=== PATIENT | male | born 1970 | race Two or more races ===

== ENCOUNTER 2025-02-08 12:49 | Inpatient (IN) | payer OTHER ==
[~2025-02-08] VITALS: Ht 170.2 cm; Wt 76.0 kg
[2025-02-08] MEDS: FUROSEMIDE 20 MG/2 ML VIAL IVP ONE (13:22)
[2025-02-08 13:31] LABS: RED BLOOD CELL COUNT(AUTO) 4.94 MIL/uL (4.50-5.90); RED CELL DISTRIBUTION WIDTH 16.1 % (11.5-14.5); WHITE BLOOD COUNT (AUTO) 4.2 K/uL (4.5-11.0)
[2025-02-08 13:32] LABS: CALCIUM, TOTAL 8.4 mg/dL (8.8-10.5); CREATININE 0.79 mg/dL (0.60-1.30); GLOMERULAR FILTR. RATE CALC > 60 mL/min (>60); GLUCOSE,RANDOM 221 mg/dL (70-110); SODIUM SERUM 132 mmol/L (136-145); UREA NITROGEN, BLOOD 25 mg/dL (7-18)
[2025-02-08 13:38] LABS: ASPARTATE AMINOTRANSFERASE 28.0 U/L (15-37); TOTAL PROTEIN, SERUM 5.9 g/dL (6.4-8.2)
[2025-02-08 13:40] LABS: TROPONIN I-HIGH SENSITIVITY 22 ng/L (<76)
[2025-02-08 13:51] LABS: PLATELET COUNT (AUTO) 92 K/uL (150-450)
[2025-02-08 14:40] LABS: COVID AG,FIA SOURCE NASAL SWAB
[2025-02-08 14:45] LABS: APPEARANCE,URINE CLEAR (CLEAR); GLUCOSE, URINE (UA) 300-500 mg/dL (NEGATIVE); LEUKOCYTE ESTERASE ,URINE NEGATIVE (NEGATIVE); NITRATE,URINE NEGATIVE (NEGATIVE); OCCULT BLOOD,URINE SMALL (NEGATIVE); PH,URINE DRUG SCREEN 6.0 (5.0-8.0); SPECIFIC GRAVITIY, URINE 1.011 (1.003-1.030)
[2025-02-08 14:52] LABS: ALCOHOL, URINE DRUG SCREEN NEGATIVE (NEGATIVE); AMPHET/METH SCREEN,URINE NEGATIVE (NEGATIVE); BARBITURATE SCREEN, URINE NEGATIVE (NEGATIVE); CANNABINOID SCREEN,URINE NEGATIVE (NEGATIVE); COCAINE SCREEN,URINE NEGATIVE (NEGATIVE); METHADONE SCREEN, URINE NEGATIVE (NEGATIVE)
[2025-02-08 15:05] LABS: SARS-COV2 (COVID) ANTIGEN,FIA Negative (Negative)
[2025-02-08 15:19] LABS: INFLUENZA TYPE A NEGATIVE FOR TYPE A (NEGATIVE); INFLUENZA TYPE B NEGATIVE FOR TYPE B (NEGATIVE)
[2025-02-08] MEDS ORDERED: FURO20TA5 PO (16:54)
[2025-02-08] MEDS ORDERED: ASPI81TA87 PO (16:54)
[2025-02-08] MEDS ORDERED: CLOP75TA83 PO (16:54)
[2025-02-08] MEDS ORDERED: CARV3 PO (16:54)
[2025-02-08] MEDS ORDERED: SPIR-37 PO (16:54)
[2025-02-08] MEDS ORDERED: RANO500T27 PO (16:54)
[2025-02-08] MEDS ORDERED: SEMA2PEN SQ (16:54)
[2025-02-08] MEDS ORDERED: LOSA-381 PO (16:54)
[2025-02-08] MEDS ORDERED: EMPA25TA3 PO (16:54)
[2025-02-08] MEDS ORDERED: LEVA15HF3 IH (16:54)
[2025-02-08] MEDS ORDERED: INSREG SQ (16:54)
[2025-02-08] MEDS ORDERED: INSLAN SQ (16:54)
[2025-02-08] MEDS ORDERED: OMEP-148 PO (16:54)
[2025-02-08] MEDS ORDERED: MOME13HF11 IH (16:54)
[2025-02-08] MEDS ORDERED: IPRATROPIUM BROMIDE 0.5 MG/2.5 ML NEB SOLUTION NEB PRN (17:15)
[2025-02-08] MEDS ORDERED: ONDANSETRON HCL 4 MG/2 ML VIAL IVP PRN (17:15)
[2025-02-08] MEDS ORDERED: MAGNESIUM HYDROXIDE SUSPENSION 30 ML UDCUP PO PRN (17:15)
[2025-02-08] MEDS ORDERED: ALBUTEROL SULFATE 2.5 MG/0.5 ML NEB SOLUTION NEB PRN (17:15)
[2025-02-08] MEDS ORDERED: BISACODYL 10 MG RECTAL RECTAL SUPPOSITORY PR PRN (17:15)
[2025-02-08] MEDS ORDERED: ZOLPIDEM TARTRATE 5 MG TABLET PO PRN (17:15)
[2025-02-08] MEDS ORDERED: DEXTROSE 50%-WATER 25 GM/50 ML SYRINGE IVP PRN (17:45)
[2025-02-08 18:31] VITALS: BP 112/82; PULSE 96; RESP 16; TEMP 98.1; O2SAT 97
[2025-02-08 19:36] VITALS: BP 136/86; PULSE 95; RESP 19; TEMP 97.5; O2SAT 100
[2025-02-08] MEDS: ACETAMINOPHEN 325 MG TABLET PO PRN (20:52)
[2025-02-08] MEDS: RANOLAZINE 500 MG ER TABLET PO SCH (20:52)
[2025-02-08] MEDS: INSULIN LISPRO 100 UNITS/ML SQ PRN (20:55)
[2025-02-08] MEDS ORDERED: MISC MED-CONVERTED FROM AMBULATORY (Mometasone/Formoterol (Dulera 200 Mcg-5 Mcg Inhaler) 2 IH SCH (21:00)
[2025-02-08] MEDS: HEPARIN SODIUM,PORCINE 5,000 UNITS/ML VIAL SQ SCH (23:37)
[2025-02-09] VITALS (7 sets, daily range): BP systolic 100–123; BP diastolic 63–89; PULSE 87–99; RESP 17–19; TEMP 97.9–98.4; O2SAT 95–99
[2025-02-09 01:21] LABS: GLUCOMETER DEV NAME(LOC) 5S.1D; GLUCOSE,POINT OF CARE 300 MG/DL (70-110)
[2025-02-09 06:18] LABS: PLATELET COUNT (AUTO) 98 K/uL (150-450); RED BLOOD CELL COUNT(AUTO) 4.90 MIL/uL (4.50-5.90); RED CELL DISTRIBUTION WIDTH 15.3 % (11.5-14.5); WHITE BLOOD COUNT (AUTO) 4.9 K/uL (4.5-11.0)
[2025-02-09 06:31] LABS: CALCIUM, TOTAL 8.2 mg/dL (8.8-10.5); CREATININE 0.90 mg/dL (0.60-1.30); GLOMERULAR FILTR. RATE CALC > 60 mL/min (>60); GLUCOSE,RANDOM 132 mg/dL (70-110); SODIUM SERUM 135 mmol/L (136-145); UREA NITROGEN, BLOOD 27 mg/dL (7-18)
[2025-02-09] MEDS: CLOPIDOGREL BISULFATE 75 MG TABLET PO SCH (08:59)
[2025-02-09] MEDS: ASPIRIN 81 MG DR TABLET PO SCH (08:59)
[2025-02-09] MEDS: EMPAGLIFLOZIN 25 MG TABLET PO SCH (08:59)
[2025-02-09] MEDS: SPIRONOLACTONE 25 MG TABLET PO SCH (09:00)
[2025-02-09] MEDS: FUROSEMIDE 40 MG/4 ML VIAL IVP SCH ×2 (09:00→20:29)
[2025-02-09] MEDS: PANTOPRAZOLE SODIUM 40 MG DR TABLET PO SCH (09:00)
[2025-02-09] MEDS: LOSARTAN POTASSIUM 25 MG TABLET PO SCH (09:00)
[2025-02-09] MEDS: INSULIN GLARGINE,HUM.REC.ANLOG 100 UNITS/ML SQ SCH (09:03)
[2025-02-09 11:31] LABS: GLUCOMETER DEV NAME(LOC) 5S.1D; GLUCOSE,POINT OF CARE 120 MG/DL (70-110)
[2025-02-09] MEDS ORDERED: SODIUM CHLORIDE 0.9% 1,000 ML ONE (12:08)
[2025-02-09 16:36] LABS: GLUCOMETER DEV NAME(LOC) 5S.1D; GLUCOSE,POINT OF CARE 217 MG/DL (70-110)
[2025-02-09 17:55] LABS: GLUCOMETER DEV NAME(LOC) 5N.2C; GLUCOSE,POINT OF CARE 170 MG/DL (70-110)
[2025-02-09 23:21] LABS: GLUCOMETER DEV NAME(LOC) 5N.2C; GLUCOSE,POINT OF CARE 90 MG/DL (70-110)
[2025-02-10 03:53] VITALS: BP 117/80; PULSE 81; RESP 18; TEMP 97.5; O2SAT 95
[2025-02-10 05:21] LABS: GLUCOMETER DEV NAME(LOC) 5N.2C; GLUCOSE,POINT OF CARE 64 MG/DL (70-110)
[2025-02-10 06:15] LABS: CALCIUM, TOTAL 7.8 mg/dL (8.8-10.5); CREATININE 0.99 mg/dL (0.60-1.30); GLOMERULAR FILTR. RATE CALC > 60 mL/min (>60); GLUCOSE,RANDOM 123 mg/dL (70-110); SODIUM SERUM 136 mmol/L (136-145); UREA NITROGEN, BLOOD 24 mg/dL (7-18)
[2025-02-10 06:18] LABS: PLATELET COUNT (AUTO) 96 K/uL (150-450); RED BLOOD CELL COUNT(AUTO) 4.66 MIL/uL (4.50-5.90); RED CELL DISTRIBUTION WIDTH 16.0 % (11.5-14.5); WHITE BLOOD COUNT (AUTO) 3.0 K/uL (4.5-11.0)
[2025-02-10 08:00] VITALS: BP 115/80; PULSE 87; RESP 18; TEMP 98; O2SAT 95
[2025-02-10 09:16] LABS: GLUCOMETER DEV NAME(LOC) 5N.2C; GLUCOSE,POINT OF CARE 131 MG/DL (70-110)
[2025-02-10] MEDS ORDERED: POTASSIUM CHL 10 MEQ/WATER 50 ML IV PRN (10:45)
[2025-02-10 11:27] VITALS: BP 117/83; PULSE 92; RESP 18; TEMP 98; O2SAT 96
[2025-02-10] MEDS: POTASSIUM CHLORIDE 20 MEQ ER TABLET PO PRN (12:17)
[2025-02-10 14:46] LABS: GLUCOMETER DEV NAME(LOC) 5S.1D; GLUCOSE,POINT OF CARE 184 MG/DL (70-110)
[2025-02-10 15:33] VITALS: BP 106/80; PULSE 92; RESP 18; TEMP 98.2
[2025-02-10 17:50] LABS: GLUCOMETER DEV NAME(LOC) 5S.1D; GLUCOSE,POINT OF CARE 177 MG/DL (70-110)
[2025-02-10 20:04] VITALS: BP 103/68; PULSE 89; RESP 17; TEMP 98.2; O2SAT 94
[2025-02-10 21:31] LABS: GLUCOMETER DEV NAME(LOC) 5S.1D; GLUCOSE,POINT OF CARE 110 MG/DL (70-110)
[2025-02-10] MEDS: BENZONATATE 100 MG CAPSULE PO PRN (22:45)
[2025-02-11 00:12] VITALS: BP 94/67; PULSE 89; RESP 17; TEMP 97.7; O2SAT 94
[2025-02-11 05:17] VITALS: BP 101/71; PULSE 86; RESP 16; TEMP 98.2; O2SAT 94
[2025-02-11 06:38] LABS: CALCIUM, TOTAL 8.1 mg/dL (8.8-10.5); CREATININE 1.01 mg/dL (0.60-1.30); GLOMERULAR FILTR. RATE CALC > 60 mL/min (>60); GLUCOSE,RANDOM 93 mg/dL (70-110); PLATELET COUNT (AUTO) 101 K/uL (150-450); RED BLOOD CELL COUNT(AUTO) 4.86 MIL/uL (4.50-5.90); RED CELL DISTRIBUTION WIDTH 15.7 % (11.5-14.5); SODIUM SERUM 132 mmol/L (136-145); UREA NITROGEN, BLOOD 27 mg/dL (7-18); WHITE BLOOD COUNT (AUTO) 3.5 K/uL (4.5-11.0)
[2025-02-11 08:32] VITALS: BP 109/72; PULSE 88; RESP 18; TEMP 97.9; O2SAT 100
[2025-02-11 11:51] LABS: GLUCOMETER DEV NAME(LOC) 5N.2C; GLUCOSE,POINT OF CARE 99 MG/DL (70-110)
[2025-02-11 12:06] VITALS: BP 100/70; PULSE 69; RESP 18; TEMP 97.9; O2SAT 99
[2025-02-11 16:09] VITALS: BP 107/75; PULSE 70; RESP 18; TEMP 97.9; O2SAT 96
[2025-02-11 19:53] VITALS: BP 110/70; PULSE 87; RESP 18; TEMP 98.1; O2SAT 99
[2025-02-11 20:55] LABS: GLUCOMETER DEV NAME(LOC) 5S.1D; GLUCOSE,POINT OF CARE 154 MG/DL (70-110)
[2025-02-11 21:46] LABS: GLUCOMETER DEV NAME(LOC) 5N.2C; GLUCOSE,POINT OF CARE 152 MG/DL (70-110)
[2025-02-12 01:09] VITALS: BP 117/75; PULSE 85; RESP 18; TEMP 98.6; O2SAT 98
[2025-02-12 05:31] VITALS: BP 94/66; PULSE 81; RESP 18; TEMP 98.2; O2SAT 95
[2025-02-12 06:01] LABS: GLUCOMETER DEV NAME(LOC) 5N.2C; GLUCOSE,POINT OF CARE 145 MG/DL (70-110)
[2025-02-12 06:11] LABS: GLUCOMETER DEV NAME(LOC) 5S.1D; GLUCOSE,POINT OF CARE 90 MG/DL (70-110)
[2025-02-12 08:25] VITALS: BP 98/68; PULSE 84; RESP 18; TEMP 98.1; O2SAT 96
[2025-02-12 11:46] VITALS: BP 107/73; PULSE 83; RESP 18; TEMP 98.2; O2SAT 95
[2025-02-12 11:50] LABS: GLUCOMETER DEV NAME(LOC) 5N.2C; GLUCOSE,POINT OF CARE 159 MG/DL (70-110)
[2025-02-12 15:29] VITALS: BP 103/68; PULSE 73; RESP 18; TEMP 98.8; O2SAT 96
[2025-02-12 17:41] LABS: GLUCOMETER DEV NAME(LOC) 5N.2C; GLUCOSE,POINT OF CARE 149 MG/DL (70-110)
[2025-02-12 20:00] VITALS: BP 124/82; PULSE 67; RESP 17; TEMP 97.3; O2SAT 99
[2025-02-13 00:46] VITALS: BP 113/72; PULSE 87; RESP 18; TEMP 98.4; O2SAT 95
[2025-02-13 04:00] VITALS: BP 122/71; PULSE 84; RESP 18; TEMP 98.1; O2SAT 97
[2025-02-13 05:35] LABS: GLUCOMETER DEV NAME(LOC) 5N.2C; GLUCOSE,POINT OF CARE 178 MG/DL (70-110)
[2025-02-13 06:31] LABS: RED BLOOD CELL COUNT(AUTO) 4.80 MIL/uL (4.50-5.90); RED CELL DISTRIBUTION WIDTH 15.6 % (11.5-14.5); WHITE BLOOD COUNT (AUTO) 3.6 K/uL (4.5-11.0)
[2025-02-13 06:54] LABS: CALCIUM, TOTAL 8.1 mg/dL (8.8-10.5); CREATININE 1.19 mg/dL (0.60-1.30); GLOMERULAR FILTR. RATE CALC > 60 mL/min (>60); GLUCOSE,RANDOM 119 mg/dL (70-110); SODIUM SERUM 134 mmol/L (136-145); UREA NITROGEN, BLOOD 37 mg/dL (7-18)
[2025-02-13 07:01] LABS: PLATELET COUNT (AUTO) 96 K/uL (150-450)
[2025-02-13 07:47] VITALS: BP 113/68; PULSE 79; RESP 18; TEMP 98.1; O2SAT 99
[2025-02-13] MEDS ORDERED: FURO-151 PO (12:38)
[2025-02-13 20:05] LABS: GLUCOMETER DEV NAME(LOC) 5S.1D; GLUCOSE,POINT OF CARE 116 MG/DL (70-110)
[2025-02-14] MEDS ORDERED: LOSARTAN POTASSIUM 25 MG TABLET PO SCH (09:00)
== END 2025-02-13 14:00 | DRG 291 ==
LOC: EMS 14:45 → EDH 16:52 → 5S 18:17
PROVIDERS: ADMIT Hospitalist; ATTEND Hospitalist
DX: I11.0 Hypertensive heart disease with heart failure (principal); I50.23 Acute on chronic systolic (congestive) heart failure; J96.00 Acute respiratory failure, unspecified whether with hypoxia or hypercapnia; I42.0 Dilated cardiomyopathy; E78.00 Pure hypercholesterolemia, unspecified; E87.6 Hypokalemia; I25.10 Atherosclerotic heart disease of native coronary artery without angina pectoris; K21.9 Gastro-esophageal reflux disease without esophagitis; J44.89 Other specified chronic obstructive pulmonary disease; E11.40 Type 2 diabetes mellitus with diabetic neuropathy, unspecified; E11.51 Type 2 diabetes mellitus with diabetic peripheral angiopathy without gangrene; E11.65 Type 2 diabetes mellitus with hyperglycemia; R53.81 Other malaise; K74.60 Unspecified cirrhosis of liver; Z20.822 Contact with and (suspected) exposure to COVID-19; Z82.49 Family history of ischemic heart disease and other diseases of the circulatory system; Z88.5 Allergy status to narcotic agent; Z95.810 Presence of automatic (implantable) cardiac defibrillator
CPT/HCPCS: 71045; 80048; 80076; 80307; 81001; 82962; 83880; 84132; 84484; 85025; 87804; 93005; 93306; 96374; 97116; 97162; 97530; 99285; J1644; J1815; J1938; J7030; 36415-L1; 36415-TC